=== PATIENT | female | born 1960 | race Caucasian/White ===

== ENCOUNTER 2016-06-11 12:29 | Emergency (ER) | payer BC ==
[2016-06-11 13:25] VITALS: RESP 18
--- NOTE | 2016-06-11 13:46 | ED ---
General Adult HPI - General Chief complaint: Upper Respiratory Infection Stated complaint: Sinus Infection Time Seen by Provider: 06/11/16 13:40 Source: patient, RN notes reviewed Mode of arrival: ambulatory Limitations: no limitations - History of Present Illness Initial comments: Patient 55-year-old female who presents emergency room today with a chief complaint of cough congestion and body aches over the last 4 days. Does admit that she started amoxicillin that she had leftover 4 days ago when the symptoms started. States she saw her family doctor the following day and was started on Levaquin. She states that symptoms do not seem to be improving she feels more congested and she has had a cough with positive sputum production. States been yellow in color. She feels no improvement so she came here to the emergency room today. Does admit to body aches and chills. Admits to feeling feverish. Denies any recorded images at home. Patient denies any shortness of breath, chest pain, back pain, abdominal pain, nausea or vomiting, numbness or tingling , dysuria or hematuria, constipation or diarrhea, headaches or visual changes, or any other complaints. - Related Data Home Medications Medication Instructions Recorded Confirmed Albuterol Inhaler [Ventolin Hfa 1 - 2 puff INHALATION RT-QID PRN 06/11/16 Inhaler] Ibuprofen [Motrin] 800 mg PO Q8HR PRN 06/11/16 06/11/16 Levofloxacin [Levaquin] 500 mg PO DAILY 06/11/16 06/11/16 Mesalamine [Lialda] 2.4 gm PO DAILY 06/11/16 06/11/16 predniSONE [Deltasone] 20 mg PO BID 06/11/16 06/11/16 Allergies Allergy/AdvReac Type Severity Reaction Status Date / Time No Known Allergies Allergy Verified 06/11/16 14:27 Review of Systems ROS Statement: Those systems with pertinent positive or pertinent negative responses have been documented in the HPI. ROS Other: All systems not noted in ROS Statement are negative. Past Medical History Past Medical History: No Reported History Additional Past Medical History / Comment(s): colitis, kidney stones History of Any Multi-Drug Resistant Organisms: None Reported Past Surgical History: No Surgical Hx Reported Past Psychological History: No Psychological Hx Reported Smoking Status: Never smoker Past Alcohol Use History: Occasional Past Drug Use History: None Reported General Exam - General Exam Comments Initial Comments: General: The patient is awake and alert, in no distress, and does not appear acutely ill. Eye: Pupils are equal, round and reactive to light, extra-ocular movements are intact. No nystagmus. There is normal conjunctiva bilaterally. No signs of icterus. Ears, nose, mouth and throat: There are moist mucous membranes and no oral lesions. Neck: The neck is supple, there is no tenderness or JVD. Cardiovascular: There is a regular rate and rhythm. No murmur, rub or gallop is appreciated. Respiratory: Lungs are clear to auscultation, respirations are non-labored, breath sounds are equal. No wheezes, stridor, rales, or rhonchi. Musculoskeletal: Normal ROM, no tenderness. Strength 5/5. Sensation intact. Pulses equal bilaterally 2+. Neurological: A&O x 3. CN II-XII intact, There are no obvious motor or sensory deficits. Coordination appears grossly intact. Speech is normal. Skin: Skin is warm and dry and no rashes or lesions are noted. Psychiatric: Cooperative, appropriate mood & affect, normal judgment. Limitations: no limitations Course Vital Signs 06/11/16 13:21 Temperature 98.6 F Pulse Rate 67 Respiratory 18 Rate Blood Pressure 164/90 O2 Sat by Pulse 97 Oximetry Medical Decision Making - Medical Decision Making Patient reexamined at this time shows no signs of distress. Patient's labs been reviewed. Influenza A positive. Chest x-ray negative. Patient is currently on day 4 of her illness. Advised outside of range for treatment Tamiflu. It was advised that it is a viral illness can use [id number] medications for her symptoms. Advised to continue Tylenol Motrin for pain and fever. Advised return for any other concerns. - Lab Data Lab Results 06/11/16 Range/Units 13:47 Influenza Type A RNA Detected H (Not Detectd) Influenza Type B (PCR) Not Detected (Not Detectd) Disposition Clinical Impression: Influenza A Disposition: HOME SELF-CARE Condition: Good Instructions: Influenza (ED) Additional Instructions: Please use medication as discussed. Please follow-up with family doctor in the next 2 days of symptoms have not improved. Please return to emergency room if the symptoms increase or worsen or for any other concerns. Time of Disposition: 15:12
--- NOTE | 2016-06-11 14:17 | XR ---
EXAMINATION TYPE: XR chest 2V DATE OF EXAM: 06/11/2016 2:10 PM COMPARISON: NONE HISTORY: Cough and congestion TECHNIQUE: Frontal and lateral views of the chest are obtained. FINDINGS: There is no focal air space opacity, pleural effusion, or pneumothorax seen. The cardiac silhouette size is within normal limits. There is a spinal curvature. The osseous structures are int act. IMPRESSION: No acute cardiopulmonary process.
[2016-06-11 15:35] VITALS: BP 148/94; PULSE 54; TEMP 97.1
== END 2016-06-11 15:35 | disposition home or self-care (01) ==
LOC: EC 12:29
DX: J10.1 Influenza due to other identified influenza virus with other respiratory manifestations (principal); Z79.899 Other long term (current) drug therapy; Z87.19 Personal history of other diseases of the digestive system
CPT/HCPCS: 71020; 87502; 99283

== ENCOUNTER → 2016-06-30 | Outpatient (CLI) | payer BC ==
--- NOTE | 2016-07-01 10:23 | MM ---
Reason for exam: screening (asymptomatic). Last mammogram was performed 2 years and 6 months ago. History: Patient is postmenopausal. Physical Findings: A clinical breast exam by your physician is recommended on an annual basis and results should be correlated with mammographic findings. MG Screening Mammo w CAD Bilateral CC and MLO view(s) were taken. Prior study comparison: January 05, 2014, bilateral MG screening mammo w CAD. The breast tissue is heterogeneously dense. This may lower the sensitivity of mammography. There is no discrete abnormality. ASSESSMENT: Negative, BI-RAD 1 RECOMMENDATION: Routine screening mammogram of both breasts in 1 year.
== END | disposition home or self-care (01) ==
LOC: RADMAMWWP 11:25
PROVIDERS: ATTEND Internal Medicine
DX: Z12.31 Encounter for screening mammogram for malignant neoplasm of breast (principal)

== ENCOUNTER → 2017-07-20 | Outpatient (CLI) | payer BC ==
--- NOTE | 2017-07-21 13:30 | MM ---
Reason for exam: screening (asymptomatic). Last mammogram was performed 1 year and 1 month ago. History: Patient is postmenopausal. Physical Findings: A clinical breast exam by your physician is recommended on an annual basis and results should be correlated with mammographic findings. MG Screening Mammo w CAD Bilateral CC and MLO view(s) were taken. Prior study comparison: June 30, 2016, bilateral MG screening mammo w CAD. January 05, 2014, bilateral MG screening mammo w CAD. The breast tissue is heterogeneously dense. This may lower the sensitivity of mammography. There is no discrete abnormality. ASSESSMENT: Negative, BI-RAD 1 RECOMMENDATION: Routine screening mammogram of both breasts in 1 year.
== END | disposition home or self-care (01) ==
LOC: RADMAMWWP 10:33
PROVIDERS: ATTEND Internal Medicine
DX: Z12.31 Encounter for screening mammogram for malignant neoplasm of breast (principal)
CPT/HCPCS: 77067

== ENCOUNTER 2018-10-14 18:39 | Emergency (ER) | payer BC ==
[2018-10-14] MEDS ORDERED: KETOROLAC 30 MG/ML 1 ML VIAL IVP STA (19:47)
[2018-10-14] MEDS ORDERED: ONDANSETRON 4 MG/2 ML VIAL IVP STA (19:47)
[2018-10-14 20:09] LABS: Amorphous Sediment,Urine Rare /hpf; Appearance,Urine Clear (Clear); Bilirubin,Urine Negative (Negative); Blood,Urine Negative (Negative); Color,Urine Light Yellow; Glucose,Urine (UA) Negative (Negative); Ketones,Urine Negative (Negative); Leukocyte Esterase,Urine Trace (Negative); Mucus,Urine Rare /hpf; Nitrite,Urine Negative (Negative); Protein,Urine Negative (Negative); RBC,Urine 1 /hpf (0-5); Squamous Epithelial Cell,Urine 1 /hpf (0-4); Urobilinogen,Urine <2.0 mg/dL (<2.0)
[2018-10-14 20:16] LABS: Basophils # (A) 0.1 k/uL (0-0.2); Basophils % (A) 1 %; Eosinophils # (A) 0.4 k/uL (0-0.7); Eosinophils % (A) 6 %; HCT 41.2 % (34.0-46.0); HGB 13.7 gm/dL (11.4-16.0); Lymphocytes % (A) 31 %; MCH 30.2 pg (25.0-35.0); MCHC 33.1 g/dL (31.0-37.0); Mean Platelet Volume 7.3; Monocytes # (A) 0.5 k/uL (0-1.0); Monocytes % (A) 7 %; Neutrophils # (A) 3.4 k/uL (1.3-7.7); Neutrophils % (A) 52 %; Platelet Count 359 k/uL (150-450); RBC 4.53 m/uL (3.80-5.40); RDW 14.1 % (11.5-15.5); WBC 6.5 k/uL (3.8-10.6)
[2018-10-14 20:21] LABS: ALT 16 U/L (9-52); AST 20 U/L (14-36); African American GFR (CKD) >90 (>60 ml/min/1.73 sqM); Albumin 4.6 g/dL (3.5-5.0); Alkaline Phosphatase 74 U/L (38-126); Anion Gap 11 mmol/L; Blood Urea Nitrogen 13 mg/dL (7-17); Calcium 9.5 mg/dL (8.4-10.2); Carbon Dioxide 24 mmol/L (22-30); Chloride 108 mmol/L (98-107); Glucose 96 mg/dL (74-99); Potassium 3.8 mmol/L (3.5-5.1); Sodium 143 mmol/L (137-145); Total Bilirubin 0.2 mg/dL (0.2-1.3); Total Protein 7.4 g/dL (6.3-8.2)
[2018-10-14 20:27] LABS: Prothrombin Time 10.3 sec (9.0-12.0)
--- NOTE | 2018-10-14 21:26 | CT ---
EXAMINATION TYPE: CT abdomen pelvis w con DATE OF EXAM: 10/14/2018 HISTORY: right sided abdominal pain. hx of stones and colitis. CT DLP: 605.2mGycm Automated Exposure Control for Dose Reduction was Utilized. CONTRAST: CT scan of the abdomen and pelvis is performed with IV Contrast, patient injected with 100 mL of Isov ue 300. COMPARISON: 06/07/2010 FINDINGS: LUNG BASES: Minimal bibasilar subsegmental dependent atelectasis is seen. LIVER/GB: There are numerous scattered subcentimeter hypoattenuated hepatic lesions as seen on the ex am of 2010. Although these are too numerous to count grossly there are similar size and number theref ore these likely represent tiny hepatic cysts. No intrapelvic biliary ductal dilatation. Gallbladder is partially contracted with no radiopaque calculi. PANCREAS: No significant abnormality is seen. SPLEEN: No significant abnormality is seen. ADRENALS: No significant abnormality is seen. KIDNEYS: There is a 7 mm right upper pole renal calculus without hydronephrosis as this is nonobstruc ting. 2 mm right upper pole renal calculus is also seen on the right that is nonobstructing. No left renal calculi are seen. Too small to accurately characterize left upper pole hypoattenuated renal les ion is seen in addition to a lower pole indeterminate 1.0 cm renal lesion that does not meet strict c riteria for renal cyst. Renal ultrasound is recommended for further evaluation. BOWEL: There is very subtle pericolonic fat stranding and questionable periappendiceal fat stranding in the right lower quadrant such as on series 201 image 47 with prominent but nonenlarged right lower quadrant lymph nodes. No dilated large or small bowel is seen. There are multiple sigmoid diverticul a without focal pericolonic fat stranding in the sigmoid colon. UTERUS/ADNEXA: Prominent pelvic vasculature. LYMPH NODES: No greater than 1cm abdominal or pelvic lymph nodes are appreciated. OSSEOUS STRUCTURES: Mild multilevel degenerative changes of the spine.. IMPRESSION: 1. Mild nonspecific minimal right lower quadrant fat stranding near the appendix and cecum with promi nent but nonenlarged lymph nodes. However the appendix is nonenlarged measuring only 4 mm. Findings c ould relate to mesenteric adenitis, colitis, or early appendicitis. Surgical consultation could be re quested. 2. Nonobstructing right renal calculi without evidence of hydronephrosis of either kidney. 3. Prominent pelvic vasculature, right greater than left, may relate to pelvic congestion syndrome in the appropriate clinical setting. 4. Indeterminate left renal lesion of the lower pole could represent a cyst with signal enhancement o r complicated cyst with proteinaceous debris/hemorrhage. Renal ultrasound is recommended on a nonemer gent basis. 5. Numerous subcentimeter hypoattenuated hepatic lesions overall similar in size and number from the prior 2010 therefore likely numerous tiny hepatic cysts.
--- NOTE | 2018-10-14 21:34 | CT ---
EXAMINATION TYPE: CT lumbar spine w con DATE OF EXAM: 10/14/2018 COMPARISON: CT abdomen pelvis of the same date HISTORY: back pain. no injury. CT DLP: 605.2 mGycm Automated exposure control for dose reduction was used. CONTRAST: CT scan of the lumbar is performed with IV Contrast, patient injected with 100 mL of Isovue 300. TECHNIQUE: Enhanced CT of the lumbar spine was performed. Bone and soft tissue window settings are s ubmitted as well as coronal and sagittal reconstructions. FINDINGS: Evaluation of the spinal canal is limited on CT as is evaluation of the neural foramen. Fin dings would be better evaluated with MRI. No acute fracture or malalignment is seen of the lumbar spine. Mild multilevel degenerative disc dise ase is noted. Visualized portions of the abdomen and pelvis are discussed on the abdomen and pelvis d ictation the same date. Vertebral body heights are maintained of the lumbar spine as is alignment. L1-L2: Normal disc space height. No disc herniation protrusion or central stenosis. No facet joint arthropathy. No evidence for foraminal encroachment. L2-L3: Based disc bulge resulting in mild bilateral neural foraminal narrowing without spinal canal s tenosis. L3-L4: Broad-based disc bulge and facet arthropathy resulting in mild bilateral neural foraminal narr owing without spinal canal stenosis. L4-L5: Broad-based disc bulge and facet arthropathy resulting in mild bilateral neural foraminal narr owing. Mild spinal canal stenosis is questioned. L5-S1: Broad-based disc bulge without spinal canal stenosis. Minimal bilateral neural foraminal narro wing. IMPRESSION: 1. No acute fracture or malalignment of the lumbar spine. 2. Mild multilevel degenerative disc disease. Degree of neural foraminal narrowing and spinal canal s tenosis would be better evaluated with MRI however there appears to be mild spinal canal stenosis at L4-L5.
--- NOTE | 2018-10-14 21:53 | US ---
EXAMINATION TYPE: US gallbladder DATE OF EXAM: 10/14/2018 COMPARISON: NONE CLINICAL HISTORY: Pain. EXAM MEASUREMENTS: Liver Length: 12.4 cm Gallbladder Wall: 0.4 cm CBD: 0.4 cm Right Kidney: 11.3 x 3.2 x cm Pancreas: wnl, prominent duct Liver: wnl Gallbladder: wall slightly thickened Evidence for sonographic Mcghee's sign: No CBD: wnl Right Kidney: 1.1 x 0.7 x 0.9cm, nonobstructing calculus IMPRESSION: 1. Gallbladder wall thickening is seen without other evidence of acute cholecystitis. HIDA scan is re commended with CCK to evaluate for chronic cholecystitis or biliary dyskinesia. 2. Nonobstructing right renal calculus.
--- NOTE | 2018-10-14 22:29 | ED ---
Abdominal Pain HPI - General Chief Complaint: Abdominal Pain Stated Complaint: right side abdominal pain Time Seen by Provider: 10/14/18 18:55 Source: patient Mode of arrival: ambulatory Limitations: no limitations - History of Present Illness Initial Comments: Patient is a 58 year old female who presents to the emergency room with reported right-sided flank pain and abdominal pain. The patient reports that her symptoms have been going on since July of this year. She has been following up with her primary care physician Dr. Coon in office for her symptoms. She states that she is going for a gallbladder ultrasound on Wednesday. Her pain became more severe today and therefore she is coming to the emergency department for evaluation. Her pain is located in the right upper quadrant. It is tender to touch. The pain does radiate around to her right flank and into her right groin. The pain is worse with stretching and is better with rest. She has not taken any medications at home for her symptoms. She denies any nausea or vomiting. No chest pain or shortness of breath. She denies any back pain. No trauma. Denies any changes in her urination to include dysuria, hematuria or difficulty voiding. Denies any changes in her bowel movements including diarrhea, constipation, melanotic stools or hematochezia. She continues to have an appetite. No report of fevers or chills at home. No abnormal vaginal bleeding or discharge. There are no other alleviating, precipitating or modifying factors - Related Data Home Medications Medication Instructions Recorded Confirmed Mesalamine [Lialda] 2.4 gm PO DAILY 06/11/16 10/14/18 Allergies Allergy/AdvReac Type Severity Reaction Status Date / Time No Known Allergies Allergy Verified 10/14/18 19:23 Review of Systems ROS Statement: Those systems with pertinent positive or pertinent negative responses have been documented in the HPI. ROS Other: All systems not noted in ROS Statement are negative. Past Medical History Past Medical History: No Reported History Additional Past Medical History / Comment(s): colitis, kidney stones History of Any Multi-Drug Resistant Organisms: None Reported Past Surgical History: No Surgical Hx Reported Additional Past Surgical History / Comment(s): colonoscopy,lithotripsy x3, eye Past Anesthesia/Blood Transfusion Reactions: Previous Problems w/ Anesthesia, Postoperative Nausea & Vomiting (PONV) Additional Past Anesthesia/Blood Transfusion Reaction / Comment(s): "sees things moving on the royal with anesthesia" Past Psychological History: No Psychological Hx Reported Smoking Status: Never smoker Past Alcohol Use History: None Reported, Occasional Past Drug Use History: None Reported - Past Family History Mother Family Medical History: No Reported History Father Family Medical History: Cancer Additional Family Medical History / Comment(s): prostate General Exam Limitations: no limitations General appearance: alert, in no apparent distress Head exam: Present: atraumatic, normocephalic, normal inspection Eye exam: Present: normal appearance, PERRL, EOMI. Absent: scleral icterus, co njunctival injection, periorbital swelling ENT exam: Present: normal exam, mucous membranes moist Neck exam: Present: normal inspection. Absent: tenderness, meningismus, lymphadenopathy Respiratory exam: Present: normal lung sounds bilaterally. Absent: respiratory distress, wheezes, rales, rhonchi, stridor Cardiovascular Exam: Present: regular rate, normal rhythm, normal heart sounds. Absent: systolic murmur, diastolic murmur, rubs, gallop, clicks GI/Abdominal exam: Present: soft, tenderness (tenderness RUQ/RLQ. No peritoneal signs. Negative psoas, negative obturator sign), normal bowel sounds. Absent: distended, guarding, rebound, rigid Extremities exam: Present: normal inspection, full ROM, normal capillary refill. Absent: tenderness, pedal edema, joint swelling, calf tenderness Back exam: Present: normal inspection Neurological exam: Present: alert, oriented X3, CN II-XII intact Psychiatric exam: Present: normal affect, normal mood Skin exam: Present: warm, dry, intact, normal color. Absent: rash Course Vital Signs 10/14/18 10/14/18 18:53 22:42 Temperature 98 F 97.6 F Pulse Rate 56 L 59 L Respiratory 18 16 Rate Blood Pressure 187/116 149/100 O2 Sat by Pulse 97 98 Oximetry Medical Decision Making - Medical Decision Making Upon arrival the patient is placed into room 27. She is hooked continuous pulse ox and cardiac monitoring. A thorough history and physical exam was performed. A 12-lead EKG was also performed which demonstrated normal sinus rhythm. Peripheral IV was established. I did recommend laboratory studies, urinalysis as well as a ultrasound of her gallbladder and a CT of her abdomen and pelvis. The patient was provided with 15 mg of Toradol for her pain and 4 mg of Zofran for any nausea. The patient did agree to the treatment plan. Upon return of the results I did discuss them with the patient. I did inform her of the haziness in her right lower quadrant which may represent mesenteric adenitis, colitis or acute appendicitis. I also informed her of her gallbladder wall thickening with concern for chronic cholecystitis. The patient understood the results. I did call discuss them with Dr. Graham. Dr. Graham is not concerned for appendicitis at this time. He stated that she may be discharged home and should follow up in his office on Wednesday. I did inform the patient of this and she was agreeable to his plan. I also informed her that she may need a HIDA scan. I told the patient to minimize the amount of pain medication that she is taking at home because I do not want her to mask any symptoms. If she has any new or worsening pain that she needs to come back to the emergency room immediately. Patient understood this. She was given written and verbal discharge instructions and she was discharged home in stable condition - Differential Diagnosis mesenteric adenitis, colitis, appendicitis, cholecystitis - Lab Data Result diagrams: 10/14/18 20:06 10/14/18 20:06 Lab Results 10/14/18 10/14/18 10/14/18 Range/Units 19:38 19:38 20:06 WBC 6.5 (3.8-10.6) k/uL RBC 4.53 (3.80-5.40) m/uL Hgb 13.7 (11.4-16.0) gm/dL Hct 41.2 (34.0-46.0) % MCV 91.0 (80.0-100.0) fL MCH 30.2 (25.0-35.0) pg MCHC 33.1 (31.0-37.0) g/dL RDW 14.1 (11.5-15.5) % Plt Count 359 (150-450) k/uL Neutrophils % 52 % Lymphocytes % 31 % Monocytes % 7 % Eosinophils % 6 % Basophils % 1 % Neutrophils # 3.4 (1.3-7.7) k/uL Lymphocytes # 2.0 (1.0-4.8) k/uL Monocytes # 0.5 (0-1.0) k/uL Eosinophils # 0.4 (0-0.7) k/uL Basophils # 0.1 (0-0.2) k/uL PT (9.0-12.0) sec INR (<1.2) Sodium (137-145) mmol/L Potassium (3.5-5.1) mmol/L Chloride (98-107) mmol/L Carbon Dioxide (22-30) mmol/L Anion Gap mmol/L BUN (7-17) mg/dL Creatinine (0.52-1.04) mg/dL Est GFR (CKD-EPI)AfAm (>60 ml/min/1.73 sqM) Est GFR (CKD-EPI)NonAf (>60 ml/min/1.73 sqM) Glucose (74-99) mg/dL Calcium (8.4-10.2) mg/dL Total Bilirubin (0.2-1.3) mg/dL AST (14-36) U/L ALT (9-52) U/L Alkaline Phosphatase (38-126) U/L Total Protein (6.3-8.2) g/dL Albumin (3.5-5.0) g/dL Lipase (23-300) U/L Urine Color Light Yellow Urine Appearance Clear (Clear) Urine pH 7.0 (5.0-8.0) Ur Specific [place] 1.000 L (1.001-1.035) Urine Protein Negative (Negative) Urine Glucose (UA) Negative (Negative) Urine Ketones Negative (Negative) Urine Blood Negative (Negative) Urine Nitrite Negative (Negative) Urine Bilirubin Negative (Negative) Urine Urobilinogen <2.0 (<2.0) mg/dL Ur Leukocyte Esterase Trace H (Negative) Urine RBC 1 (0-5) /hpf Urine WBC 1 (0-5) /hpf Ur Squamous Epith Cells 1 (0-4) /hpf Amorphous Sediment Rare H (None) /hpf Urine Mucus Rare H (None) /hpf Urine HCG, Qual Not Detected (Not Detectd) 10/14/18 10/14/18 Range/Units 20:06 20:06 WBC (3.8-10.6) k/uL RBC (3.80-5.40) m/uL Hgb (11.4-16.0) gm/dL Hct (34.0-46.0) % MCV (80.0-100.0) fL MCH (25.0-35.0) pg MCHC (31.0-37.0) g/dL RDW (11.5-15.5) % Plt Count (150-450) k/uL Neutrophils % % Lymphocytes % % Monocytes % % Eosinophils % % Basophils % % Neutrophils # (1.3-7.7) k/uL Lymphocytes # (1.0-4.8) k/uL Monocytes # (0-1.0) k/uL Eosinophils # (0-0.7) k/uL Basophils # (0-0.2) k/uL PT 10.3 (9.0-12.0) sec INR 1.0 (<1.2) Sodium 143 (137-145) mmol/L Potassium 3.8 (3.5-5.1) mmol/L Chloride 108 H (98-107) mmol/L Carbon Dioxide 24 (22-30) mmol/L Anion Gap 11 mmol/L BUN 13 (7-17) mg/dL Creatinine 0.63 (0.52-1.04) mg/dL Est GFR (CKD-EPI)AfAm >90 (>60 ml/min/1.73 sqM) Est GFR (CKD-EPI)NonAf >90 (>60 ml/min/1.73 sqM) Glucose 96 (74-99) mg/dL Calcium 9.5 (8.4-10.2) mg/dL Total Bilirubin 0.2 (0.2-1.3) mg/dL AST 20 (14-36) U/L ALT 16 (9-52) U/L Alkaline Phosphatase 74 (38-126) U/L Total Protein 7.4 (6.3-8.2) g/dL Albumin 4.6 (3.5-5.0) g/dL Lipase 134 (23-300) U/L Urine Color Urine Appearance (Clear) Urine pH (5.0-8.0) Ur Specific [place] (1.001-1.035) Urine Protein (Negative) Urine Glucose (UA) (Negative) Urine Ketones (Negative) Urine Blood (Negative) Urine Nitrite (Negative) Urine Bilirubin (Negative) Urine Urobilinogen (<2.0) mg/dL Ur Leukocyte Esterase (Negative) Urine RBC (0-5) /hpf Urine WBC (0-5) /hpf Ur Squamous Epith Cells (0-4) /hpf Amorphous Sediment (None) /hpf Urine Mucus (None) /hpf Urine HCG, Qual (Not Detectd) - EKG Data EKG Comments: EKG demonstrates a normal sinus rhythm with a ventricular rate of 57. LA interval 122. QRS 96. QTC of 461. There are occasional PACs. No acute ST segment elevations or depressions concerning for ischemic changes Disposition Clinical Impression: Abdominal pain Disposition: HOME SELF-CARE Condition: Stable Instructions (If sedation given, give patient instructions): Abdominal Pain (E D) Additional Instructions: Please follow-up with Dr. Graham on Wednesday. Call on Wednesday to make an appointment. You will also need a HIDA scan of your gallbladder. Take Tylenol and Motrin for pain however if your pain worsens, return to the emergency department Is patient prescribed a controlled substance at d/c from ED?: No Referrals: Caro Coon MD [Primary Care Provider] - 1-2 days Speedy Graham MD [STAFF PHYSICIAN] - 1-2 days Time of Disposition: 22:29
[2018-10-14 22:44] VITALS: BP 149/100; PULSE 59; RESP 16; TEMP 97.6
== END 2018-10-14 22:45 | disposition home or self-care (01) ==
LOC: EC 18:39
DX: R10.11 Right upper quadrant pain (principal); N20.0 Calculus of kidney; N94.89 Other specified conditions associated with female genital organs and menstrual cycle; K76.9 Liver disease, unspecified; Z79.899 Other long term (current) drug therapy
CPT/HCPCS: 36415; 93005; 80053; 83690; 85025; 85610; 81001; 81025; 76705; 72132; 74177; 99284; 96374; 96375; J2405; J1885; Q9967

== ENCOUNTER 2018-11-09 09:53 | Day surgery (SDC) | payer BC ==
[2018-11-07 10:54] VITALS: BMI 24.1
[~2018-11-09 09:53] MED LIST: LACTATED RINGERS 1,000 ML IV SCH; LIDOCAINE 1% 20 ML VIAL (10MG/ML) FOR IV START INTRADERMA PRN
[2018-11-09 10:36] VITALS: TEMP 97.8
[2018-11-09] MEDS ORDERED: LACTATED RINGERS 1,000 ML IV ONE (10:36)
[2018-11-09] MEDS ORDERED: LIDOCAINE 1% 20 ML VIAL (10MG/ML) FOR IV START INTRADERMA ONE (10:38)
[2018-11-09] MEDS ORDERED: PROPOFOL 10 MG/ML 20 ML VIAL IV ONE (11:47)
[2018-11-09] MEDS ORDERED: LIDOCAINE 1% INJ 10MG/ML (20 ML MDV) ONE (11:47)
--- NOTE | 2018-11-09 12:10 | P.PCN ---
Date of Procedure: 11/09/18 Procedure(s) Performed: BRIEF HISTORY: Patient is a 58-year-old pleasant white female scheduled for an elective colonoscopy as a part of evaluation of severe right lower abdominal pain for the last 3 months duration. His been having intermittent diarrhea. Has been to the emergency room 3 times in the last [address] of the abdomen and pelvis done at [facility] as well as at [facility] from the patient was normal. She was also admitted to [facility] following her third ER visit. She was recommended to have an outpatient colonoscopy. 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 Last colonoscopy 2 years ago was un remarkable. PROCEDURE PERFORMED: Colonoscopy with random biopsies. PREOPERATIVE DIAGNOSIS: Severe right lower quadrant abdominal pain of 3 months duration. IV sedation per Anesthesia. PROCEDURE: After informed consent was obtained, the patient, was brought into the endoscopy unit. IV sedation was administered by Anesthesia under continuous monitoring. Digital rectal examination was normal. Initially the Olympus CF-160 flexible video colonoscope was then inserted in the rectum, gradually advanced into the cecum without any difficulty. Careful examination was performed as the scope was gradually being withdrawn. Ileocecal valve and the appendiceal orifice were visualized and appeared normal. Prep was excellent. Terminal ileum was intubated at least 37 mm visualized and appeared normal. Biopsies were done from this area. Mucosa of the cecum, ascending colon, transverse colon, descending colon, sigmoid colon, and rectum appeared normal. Scattered sigmoid diverticulosis seen. Retroflexion was performed in the rectum and no lesions were seen. Random biopsies were done throughout the entire colon. The patient tolerated the procedure well. IMPRESSION: Normal-appearing colon from rectum to cecum with no evidence of colitis or colorectal neoplasia. Scattered sigmoid Diverticulosis RECOMMENDATIONS: Findings of this examination were discussed with the patient as well her family. She was advised to follow with the biopsy results and she'll be seen in office in one to 2 weeks..
[2018-11-09 12:33] VITALS: BP 139/89; PULSE 56; RESP 18
== END 2018-11-09 13:04 | disposition home or self-care (01) ==
LOC: ORWHC2ENDO 09:53
PROVIDERS: ATTEND Internal Medicine Gastroenterology
DX: K57.30 Diverticulosis of large intestine without perforation or abscess without bleeding (principal); Z87.442 Personal history of urinary calculi; F39 Unspecified mood [affective] disorder; Z79.899 Other long term (current) drug therapy
CPT/HCPCS: 45380; J2001; J2704; 88305

== ENCOUNTER → 2019-03-06 | Outpatient (CLI) | payer BC ==
--- NOTE | 2019-03-10 12:22 | MM ---
Reason for exam: screening (asymptomatic). Last mammogram was performed 1 year and 7 months ago. History: Patient is postmenopausal. Physical Findings: A clinical breast exam by your physician is recommended on an annual basis and results should be correlated with mammographic findings. MG Screening Mammo w CAD Bilateral CC and MLO view(s) were taken. Prior study comparison: July 20, 2017, bilateral MG screening mammo w CAD. June 30, 2016, bilateral MG screening mammo w CAD. The breast tissue is heterogeneously dense. This may lower the sensitivity of mammography. There is no discrete abnormality. ASSESSMENT: Negative, BI-RAD 1 RECOMMENDATION: Routine screening mammogram of both breasts in 1 year.
== END | disposition home or self-care (01) ==
LOC: RADMAMWWP 11:02
PROVIDERS: ATTEND Internal Medicine
DX: Z12.31 Encounter for screening mammogram for malignant neoplasm of breast (principal)
CPT/HCPCS: 77067

== ENCOUNTER → 2020-02-16 | Outpatient (CLI) | payer BC ==
--- NOTE | 2020-02-16 12:43 | XR ---
EXAMINATION TYPE: XR KUB DATE OF EXAM: 02/16/2020 12:38 PM CLINICAL HISTORY: Right-sided kidney stone TECHNIQUE: Single supine KUB image of the abdomen is obtained. COMPARISON: CT abdomen and pelvis October 14, 2018 FINDINGS: Prior visualized roughly 9 mm calculus right kidney upper pole level not clearly seen on th is study. No definite left-sided nephrolithiasis. Overall nonobstructive bowel gas pattern. Few scattered tiny pelvic phleboliths. Osseous structures a re intact. IMPRESSION: As above.
== END | disposition home or self-care (01) ==
LOC: RADXRMAIN 12:09
PROVIDERS: ATTEND Urology
DX: N20.2 Calculus of kidney with calculus of ureter (principal)
CPT/HCPCS: 74018

== ENCOUNTER → 2020-02-21 | Outpatient (CLI) | payer BC ==
--- NOTE | 2020-02-21 10:21 | CT ---
EXAMINATION TYPE: CT abdomen pelvis wo con DATE OF EXAM: 02/21/2020 COMPARISON: 10/14/2018 INDICATION: Right flank pain, history of renal stones DLP: 305.6 mGycm, Automated exposure control for dose reduction was used. CONTRAST: 0 mL of Isovue 300. Study performed without Oral Contrast TECHNIQUE: Axial images were obtained from above the diaphragm to the pubic rami in the axial plane a t 5 mm thick sections. Reconstructed images are reviewed on the computer in the coronal plane. FINDINGS: Limited CT sections are obtained the lung bases. The lung bases are clear. CT ABDOMEN: Liver: Normal Spleen: Normal Pancreas: Normal Adrenal glands: The adrenal glands are normal. Gallbladder: Normal Kidneys: No masses are evident. No hydronephrosis is present. No cysts are present. No renal stone s are evident. No hydroureter is evident. No ureteral stones are evident. Aorta: Normal Inferior vena cava: Normal. CT PELVIS: Loops of bowel within the abdomen and pelvis are normal. This study is without oral contrast limi ting bowel evaluation. Appendix: Normal as visualized. Urinary bladder: Normal. Genitourinary structures: Uterus is unremarkable. Adnexal regions are clear. Osseous structures: No suspicious lytic or sclerotic lesions. IMPRESSIONS: 1. No suspicious renal or ureteral stones.
== END | disposition home or self-care (01) ==
LOC: RADCTMAIN 07:39
PROVIDERS: ATTEND Urology
DX: N20.9 Urinary calculus, unspecified (principal); R10.9 Unspecified abdominal pain
CPT/HCPCS: 74176

== ENCOUNTER → 2022-01-27 | Outpatient (CLI) | payer BC ==
--- NOTE | 2022-01-27 14:32 | XR ---
EXAMINATION TYPE: XR KUB DATE OF EXAM: 01/27/2022 COMPARISON: KUB 02/16/2020, CT abdomen pelvis 02/21/2020 HISTORY: N20.0 Calculus kidney TECHNIQUE: Supine KUB images of the abdomen is obtained FINDINGS: Small bowel demonstrates no evidence for dilatation or air fluid levels. Gas and fecal material is seen in non-distended colon. Limited evaluation for renal calculi due to overlying bowel. No discrete renal calcifications identif ied. The lung bases are clear. The osseous structures are intact. IMPRESSION: Limited evaluation for renal calculi due to overlying bowel. No discrete renal calcifications identif ied.
== END | disposition home or self-care (01) ==
LOC: RADXRMAIN 14:08
PROVIDERS: ATTEND Urology
DX: N20.0 Calculus of kidney (principal)
CPT/HCPCS: 74018

== ENCOUNTER → 2022-01-30 | Outpatient (CLI) | payer BC ==
--- NOTE | 2022-01-30 15:02 | CT ---
EXAMINATION TYPE: CT abdomen pelvis wo con DATE OF EXAM: 01/30/2022 COMPARISON: 02/21/2020 HISTORY: Right side kidney stone. CT DLP: 776 mGycm Examination of the solid and hollow viscera is limited given the lack of contrast. FINDINGS: LUNG BASES: No evidence for nodule. No evidence for infiltrate. LIVER/GB: The gallbladder is unremarkable. No space-occupying hepatic lesion. PANCREAS: No pancreatic mass identified. No inflammatory process seen. SPLEEN: No evidence for splenomegaly. No intrasplenic lesions seen. ADRENALS: No adrenal nodules identified. No evidence for thickening. KIDNEYS: No evidence for renal mass. 2 mm nonobstructing calculus upper pole right kidney and upper p ole left kidney. No hydronephrosis. BOWEL: Appendix has a normal appearance. No evidence of bowel obstruction. No inflammatory process. Lymph nodes: No evidence for adenopathy greater than 1 cm. Abdominal aorta: Atheromatous changes seen. No evidence for aneurysm. Genital organs: No significant abnormality. Other: No significant abnormality. IMPRESSION: NONOBSTRUCTING NEPHROLITHIASIS.
== END | disposition home or self-care (01) ==
LOC: RADCTMAIN 14:01
PROVIDERS: ATTEND Urology
DX: N20.0 Calculus of kidney (principal)
CPT/HCPCS: 74176

== ENCOUNTER 2022-03-09 10:14 | Emergency (ER) | payer BC ==
[2022-03-09] MEDS ORDERED: SODIUM CHLORIDE 0.9% 1,000 ML IV STA (12:46)
[2022-03-09] MEDS ORDERED: PANTOPRAZOLE 40 MG/10 ML VIAL IVP STA (12:46)
[2022-03-09] MEDS ORDERED: MORPHINE SULFATE 4 MG/ML SYRINGE IVP STA (12:46)
[2022-03-09] MEDS ORDERED: ONDANSETRON 4 MG/2 ML VIAL IVP STA (12:46)
--- NOTE | 2022-03-09 12:48 | ED ---
General Adult HPI - General Chief complaint: Abdominal Pain Stated complaint: Kidney Stone Time Seen by Provider: 03/09/22 12:30 Source: patient, RN notes reviewed, old records reviewed Mode of arrival: ambulatory Limitations: no limitations - History of Present Illness Initial comments: Patient is a 61-year-old female who presents emergency Department complaining of somewhat chronic abdominal pain with an acute exacerbation. Has a history of colitis as well as right-sided kidney stones. Has a history of this crampy, sharp abdominal pain that she is currently experiencing. She states it started again 4 days ago. It has been having nausea with nonbilious nonbloody emesis as well as nonbloody diarrhea since yesterday. Nurses right-sided abdominal pain that is occasionally in the right upper quadrant occasion the right lower quadrant. Still has both her appendix and gallbladder. Denies any chest pain, shortness of breath. Denies any fevers. Is unsure certain if this is similar to her colitis versus kidney stone pain. She presents for further evaluation at this time. States she has less of an appetite.Denies any hematuria, dysuria. - Related Data Home Medications Medication Instructions Recorded Confirmed Mesalamine [Lialda] 2.4 gm PO DAILY 06/11/16 03/09/22 Acetaminophen Tab [Tylenol Tab] 1,000 mg PO Q6H PRN 03/09/22 03/09/22 lisinopriL [Zestril] 10 mg PO BID 03/09/22 03/09/22 Previous Rx's Medication Instructions Recorded Dicyclomine [Bentyl] 10 mg PO TID PRN 7 Days #21 capsule 03/09/22 Ondansetron Odt [Zofran Odt] 4 mg PO Q8HR PRN 3 Days #9 tab 03/09/22 Allergies Allergy/AdvReac Type Severity Reaction Status Date / Time iodine Allergy Rash/Hives Verified 03/09/22 15:22 Review of Systems ROS Statement: Those systems with pertinent positive or pertinent negative responses have been documented in the HPI. Review of Systems: CONST: Denies fever EYES: Denies blurry vision ENT: Denies nasal congestion C/V: Denies Chest pain RESP: Denies shortness of breath GI: Endorses abdominal pain : Denies dysuria SKIN: Denies rash. MSK: Denies joint pain. NEURO: Denies headache ROS Other: All systems not noted in ROS Statement are negative. Past Medical History Past Medical History: No Reported History Additional Past Medical History / Comment(s): Colitis. Hx kidney stones. SEVERE lower right abdominal pain. "I believe I was impacted." Bloating. "Was told at one hospital that I have an inflammed bowel close to my appendix and another hospital told me I don't." "Current right kidney stone. Urology appointment coming up." History of Any Multi-Drug Resistant Organisms: None Reported Past Surgical History: No Surgical Hx Reported Additional Past Surgical History / Comment(s): Colonoscopy, lithotripsy X3, eye surgery. Past Anesthesia/Blood Transfusion Reactions: Previous Problems w/ Anesthesia, Postoperative Nausea & Vomiting (PONV) Additional Past Anesthesia/Blood Transfusion Reaction / Comment(s): "Saw things moving on the royal with anesthesia with 1st lithotripsy." Past Psychological History: No Psychological Hx Reported Smoking Status: Never smoker Past Alcohol Use History: None Reported, Occasional Past Drug Use History: None Reported - Past Family History Mother Family Medical History: No Reported History Father Family Medical History: Cancer Additional Family Medical History / Comment(s): Prostate cancer. General Exam - General Exam Comments Initial Comments: General: Appears in mild acute distress secondary to abdominal pain.. HEAD: Normal with no signs of head trauma. EYES: PERRLA, EOMI, conjunctiva normal, no discharge. ENT: Hearing grossly intact, normal oropharynx. RESPIRATORY: Clear breath sounds bilaterally. No wheezes, rales, or rhonchi. C/V: Regular rate and rhythm. S1 and S2 auscultated, no edema, peripheral pulses 2+ and intact throughout ABD: Abdomen is soft, nondistended. Mildly tender to palpation in the right upper quadrant, right lower quadrant. No flank tenderness. No CVA tenderness to percussion. No guarding, peritoneal signs, rebound tenderness to palpation. EXT: Normal range of motion, no obvious deformity SKIN: No rashes or lesions observed on exposed skin. NEURO: Alert and oriented 4. Limitations: no limitations Course Vital Signs 03/09/22 03/09/22 03/09/22 10:37 14:34 16:55 Temperature 98.0 F 97.9 F Pulse Rate 70 78 66 Respiratory 18 17 16 Rate Blood Pressure 122/81 146/108 130/81 O2 Sat by Pulse 98 98 96 Oximetry Medical Decision Making - Medical Decision Making Based on the patient's presentation and physical exam, I'm concerned for an acute exacerbation of chronic abdominal discomfort. Differential diagnosis includes renal stone, colitis I cannot rule out other etiology at this time including hepatobiliary. We will obtain abdominal laboratory studies, as well as start with ultrasounds of the renals bladder, as well as gallbladder. Patient was symptomatically treated with IV analgesia, fluids, antiemetics. She was in agreement with this plan. Vital signs within acceptable limits. Screen ing EKG will also be obtained. Patient's EKG shows no signs of acute ischemia. Laboratory studies are remarkable for a mild leukopenia 3.6. Urinalysis shows no evidence of kidney stone. Remainder the labs are unremarkable. Bladder and gallbladder ultrasound as interpreted by radiology reveals no evidence of hydronephrosis or obstructive renal calculi. Gallbladder ultrasound is unremarkable as well. I did update the patient this time. I would like to obtain CT imaging of the abdomen and pelvis at this time. She was in agreement this plan. CT is interpreted by my self revealed right-sided enteritis which does fit with her clinical symptoms. Diarrhea present. I updated the patient with results. We discussed that enteritis typically viral in origin, and she is only at symptoms for 3-4 days. I do believe this will pass with time and she was in agreement with the plan. She'll be discharged home at this time. Strict return precautions were discussed. She was in agreement this plan. I will provide the patient with a prescription for Bentyl, ODT Zofran. I instructed the patient to follow up with their PCP in the next 1-3 days. I explained that the patient should return to the emergency department if they experience any worsening symptoms. Strict return precautions were discussed with the patient. The patient expressed understanding of these instructions. I answered all questions that the patient had. The patient was discharged home in good condition with their prescriptions and follow up information. - Lab Data Result diagrams: 03/09/22 12:49 03/09/22 12:49 Lab Results 03/09/22 03/09/22 03/09/22 Range/Units 12:49 12:49 12:49 WBC 3.6 L (3.8-10.6) k/uL RBC 4.68 (3.80-5.40) m/uL Hgb 14.4 (11.4-16.0) gm/dL Hct 42.5 (34.0-46.0) % MCV 90.8 (80.0-100.0) fL MCH 30.8 (25.0-35.0) pg MCHC 34.0 (31.0-37.0) g/dL RDW 12.2 (11.5-15.5) % Plt Count 250 (150-450) k/uL MPV 7.7 Neutrophils % 65 % Lymphocytes % 20 % Monocytes % 10 % Eosinophils % 1 % Basophils % 1 % Neutrophils # 2.4 (1.3-7.7) k/uL Lymphocytes # 0.7 L (1.0-4.8) k/uL Monocytes # 0.3 (0-1.0) k/uL Eosinophils # 0.0 (0-0.7) k/uL Basophils # 0.0 (0-0.2) k/uL PT 9.6 (9.0-12.0) sec INR 0.9 (<1.2) APTT 24.8 (22.0-30.0) sec Sodium (137-145) mmol/L Potassium (3.5-5.1) mmol/L Chloride (98-107) mmol/L Carbon Dioxide (22-30) mmol/L Anion Gap mmol/L BUN (7-17) mg/dL Creatinine (0.52-1.04) mg/dL Est GFR (CKD-EPI)AfAm (>60 ml/min/1.73 sqM) Est GFR (CKD-EPI)NonAf (>60 ml/min/1.73 sqM) Glucose (74-99) mg/dL Plasma Lactic Acid Erik (0.7-2.0) mmol/L Calcium (8.4-10.2) mg/dL Total Bilirubin (0.2-1.3) mg/dL AST (14-36) U/L ALT (4-34) U/L Alkaline Phosphatase (38-126) U/L Total Protein (6.3-8.2) g/dL Albumin (3.5-5.0) g/dL Amylase (30-110) U/L Lipase (23-300) U/L Urine Color Light Yellow Urine Appearance Clear (Clear) Urine pH 6.5 (5.0-8.0) Ur Specific [place] 1.012 (1.001-1.035) Urine Protein Negative (Negative) Urine Glucose (UA) Negative (Negative) Urine Ketones 1+ H (Negative) Urine Blood Trace H (Negative) Urine Nitrite Negative (Negative) Urine Bilirubin Negative (Negative) Urine Urobilinogen <2.0 (<2.0) mg/dL Ur Leukocyte Esterase Negative (Negative) Urine RBC 2 (0-5) /hpf Urine WBC 1 (0-5) /hpf Ur Squamous Epith Cells <1 (0-4) /hpf Hyaline Casts 1 (0-2) /lpf Urine Mucus Rare H (None) /hpf 03/09/22 03/09/22 Range/Units 12:49 12:49 WBC (3.8-10.6) k/uL RBC (3.80-5.40) m/uL Hgb (11.4-16.0) gm/dL Hct (34.0-46.0) % MCV (80.0-100.0) fL MCH (25.0-35.0) pg MCHC (31.0-37.0) g/dL RDW (11.5-15.5) % Plt Count (150-450) k/uL MPV Neutrophils % % Lymphocytes % % Monocytes % % Eosinophils % % Basophils % % Neutrophils # (1.3-7.7) k/uL Lymphocytes # (1.0-4.8) k/uL Monocytes # (0-1.0) k/uL Eosinophils # (0-0.7) k/uL Basophils # (0-0.2) k/uL PT (9.0-12.0) sec INR (<1.2) APTT (22.0-30.0) sec Sodium 139 (137-145) mmol/L Potassium 3.9 (3.5-5.1) mmol/L Chloride 106 (98-107) mmol/L Carbon Dioxide 24 (22-30) mmol/L Anion Gap 9 mmol/L BUN 11 (7-17) mg/dL Creatinine 0.56 (0.52-1.04) mg/dL Est GFR (CKD-EPI)AfAm >90 (>60 ml/min/1.73 sqM) Est GFR (CKD-EPI)NonAf >90 (>60 ml/min/1.73 sqM) Glucose 95 (74-99) mg/dL Plasma Lactic Acid Erik 0.9 (0.7-2.0) mmol/L Calcium 8.5 (8.4-10.2) mg/dL Total Bilirubin 0.4 (0.2-1.3) mg/dL AST 32 (14-36) U/L ALT 16 (4-34) U/L Alkaline Phosphatase 67 (38-126) U/L Total Protein 7.3 (6.3-8.2) g/dL Albumin 4.5 (3.5-5.0) g/dL Amylase 69 (30-110) U/L Lipase 89 (23-300) U/L Urine Color Urine Appearance (Clear) Urine pH (5.0-8.0) Ur Specific [place] (1.001-1.035) Urine Protein (Negative) Urine Glucose (UA) (Negative) Urine Ketones (Negative) Urine Blood (Negative) Urine Nitrite (Negative) Urine Bilirubin (Negative) Urine Urobilinogen (<2.0) mg/dL Ur Leukocyte Esterase (Negative) Urine RBC (0-5) /hpf Urine WBC (0-5) /hpf Ur Squamous Epith Cells (0-4) /hpf Hyaline Casts (0-2) /lpf Urine Mucus (None) /hpf - EKG Data -: EKG Interpreted by Me EKG Comments: 12-lead Electrocardiogram Interpretation Note EKG was reviewed and interpreted by myself. 12-lead ECG performed at 1348 is interpreted by me as revealing normal sinus rhythm at a rate of 53 beats per minute. [place] is normal. DC interval is 151 ms, QRS durations 105 ms, QTc is 467 ms.. There were no ST or T wave abnormalities to suggest myocardial ischemia or injury. R wave progression across the precordium was satisfactory. By my interpretation this EKG is non-diagnostic for acute ischemia. When compared with EKG from 10/14/2018, no smoking change. Disposition Clinical Impression: Enteritis Disposition: HOME SELF-CARE Condition: Good Prescriptions: Dicyclomine [Bentyl] 10 mg PO TID PRN 7 Days #21 capsule PRN Reason: Pain Ondansetron Odt [Zofran Odt] 4 mg PO Q8HR PRN 3 Days #9 tab PRN Reason: Nausea Is patient prescribed a controlled substance at d/c from ED?: No Referrals: Caro Coon MD [Primary Care Provider] - 1-2 days Time of Disposition: 16:00
[2022-03-09 13:06] LABS: Appearance,Urine Clear (Clear); Bilirubin,Urine Negative (Negative); Blood,Urine Trace (Negative); Color,Urine Light Yellow; Glucose,Urine (UA) Negative (Negative); Hyaline Casts,Urine 1 /lpf (0-2); Ketones,Urine 1+ (Negative); Leukocyte Esterase,Urine Negative (Negative); Mucus,Urine Rare /hpf; Nitrite,Urine Negative (Negative); PH, Urine 6.5 (5.0-8.0); Protein,Urine Negative (Negative); RBC,Urine 2 /hpf (0-5); Specific Gravity,Urine 1.012 (1.001-1.035); Squamous Epithelial Cell,Urine <1 /hpf (0-4); Urobilinogen,Urine <2.0 mg/dL (<2.0); WBC,Urine 1 /hpf (0-5)
[2022-03-09 13:13] LABS: INR 0.9 (<1.2); Partial Thromboplastin Time 24.8 sec (22.0-30.0); Prothrombin Time 9.6 sec (9.0-12.0)
[2022-03-09 13:16] LABS: Basophils % (A) 1 %; Eosinophils % (A) 1 %; HCT 42.5 % (34.0-46.0); HGB 14.4 gm/dL (11.4-16.0); Lymphocytes # (A) 0.7 k/uL (1.0-4.8); Lymphocytes % (A) 20 %; MCH 30.8 pg (25.0-35.0); MCV 90.8 fL (80.0-100.0); Mean Platelet Volume 7.7; Monocytes # (A) 0.3 k/uL (0-1.0); Monocytes % (A) 10 %; Neutrophils # (A) 2.4 k/uL (1.3-7.7); Neutrophils % (A) 65 %; Platelet Count 250 k/uL (150-450); RBC 4.68 m/uL (3.80-5.40); RDW 12.2 % (11.5-15.5); WBC 3.6 k/uL (3.8-10.6)
[2022-03-09 13:21] LABS: ALT 16 U/L (4-34); AST 32 U/L (14-36); African American GFR (CKD) >90 (>60 ml/min/1.73 sqM); Albumin 4.5 g/dL (3.5-5.0); Alkaline Phosphatase 67 U/L (38-126); Amylase 69 U/L (30-110); Anion Gap 9 mmol/L; Blood Urea Nitrogen 11 mg/dL (7-17); Calcium 8.5 mg/dL (8.4-10.2); Carbon Dioxide 24 mmol/L (22-30); Chloride 106 mmol/L (98-107); Glucose 95 mg/dL (74-99); Lipase 89 U/L (23-300); Non-African American GFR(CKD) >90 (>60 ml/min/1.73 sqM); Potassium 3.9 mmol/L (3.5-5.1); Sodium 139 mmol/L (137-145); Total Bilirubin 0.4 mg/dL (0.2-1.3); Total Protein 7.3 g/dL (6.3-8.2)
--- NOTE | 2022-03-09 13:38 | US ---
EXAMINATION TYPE: US abd limited kidneys/bladder DATE OF EXAM: 03/09/2022 COMPARISON: 01/30/2022 CT CLINICAL HISTORY: right flank pain. hx renal stones per patient. TECHNIQUE: Multiple sonographic images of the right upper quadrant, bilateral kidneys, and bladder ar e obtained. FINDINGS: EXAM MEASUREMENTS: Liver Length: 13.7 cm Gallbladder Wall: 0.3 cm CBD: 0.5 cm Right Kidney: 9.9 x 5.0 x 4.6 cm Left Kidney: 9.4 x 4.6 x 4.7 cm Pancreas: Main pancreatic duct- 3.0 mm Liver: Cystic lesion adjacent to GB= 0.6 x 0.9 x 0.[address] Gallbladder: Fundal region wall appears slightly thickened= 3.4 mm suggestive of adenomyomatosis. CBD: wnl Right Kidney: No hydronephrosis or masses seen Left Kidney: No hydronephrosis or masses seen, limited visualization due to bowle gas Bladder: distended Bilateral Jets Seen LINOLEUM LAYER NOTES: Peristalsing bowel visualized. IMPRESSION: 1. No evidence for acute process. 2. Right renal calculus seen on prior CT not definitively visualized. No evidence of obstructive uro unruly.
[2022-03-09] MEDS ORDERED: METOCLOPRAMIDE 5 MG/ML 2 ML VIAL IVP STA (13:52)
[2022-03-09] MEDS ORDERED: FAMOTIDINE 20 MG/2 ML VIAL IV STA (13:58)
[2022-03-09] MEDS ORDERED: diphenhydrAMINE 50 MG/ML 1 ML VIAL IVP STA (13:58)
[2022-03-09] MEDS ORDERED: methylPREDNISolone SOD SUCCI 125 MG/2 ML VIAL IV STA (13:58)
--- NOTE | 2022-03-09 16:02 | CT ---
EXAMINATION TYPE: CT abdomen pelvis w con DATE OF EXAM: 03/09/2022 COMPARISON: 09/29/2021 HISTORY: 61-year-old female Right lower quadrant abdominal pain, nausea, vomiting and diarrhea. TECHNIQUE: Contiguous axial scanning of the abdomen and pelvis following administration of 100 ml Iso samantha 300 IV contrast. Delayed images through the kidneys and coronal/sagittal reconstructions perform ed. CT DLP: 688.5 mGycm Automated exposure control for dose reduction was used. FINDINGS: Heart normal size without pericardial effusion. Lung bases clear without pleural effusion. Numerous scattered tiny hypodensities throughout the liver measuring 6 cm in smaller likely small cys ts. Portal venous system is patent. Bile duct measures up to 6 mm, likely age related change. No abno rmal gallbladder distention. Adrenal glands, right kidney, spleen, and pancreas show no gross adenopathy. There is a 1 cm cortical lesion lower pole left kidney compatible with a benign cyst. Mild diffuse gastric fold thickening may relate to nondistention or gastritis. Numerous scattered borderline sized mesenteric lymph nodes measuring up to 7 mm. Prominent fluid-fill ed small bowel loops throughout the mid and lower abdomen and pelvis with liquid stool along the asce nding colon. Segments of the normal appendix are visualized. Mild diverticulosis. No pericolonic infl ammatory change. Bladder urine distended. Uterus anteverted. Both ovaries are visualized. No abnormal fluid collection in the pelvis or pelvic lymphadenopathy. Bones: Mild/moderate degenerative change of both hips. Facet arthropathy mid to lower lumbar spine. IMPRESSION: 1. NUMEROUS PROMINENT FLUID-FILLED SMALL BOWEL LOOPS THROUGHOUT. LIQUID STOOL IN THE RIGHT SIDE OF TH E COLON SUGGESTING DIARRHEAL STATE. CORRELATE FOR ENTERITIS. 2. NUMEROUS BORDERLINE SIZED MESENTERIC LYMPH NODES MEASURING UP TO 7 MM, LIKELY REACTIVE. 3. DIFFUSE GASTRIC FOLD THICKENING COULD RELATE TO NONDISTENTION OR GASTRITIS.
[2022-03-09 16:57] VITALS: BP 130/81; PULSE 66; RESP 16; TEMP 97.9
== END 2022-03-09 16:57 | disposition home or self-care (01) ==
LOC: EC 10:14
DX: K52.9 Noninfective gastroenteritis and colitis, unspecified (principal); Z91.041 Radiographic dye allergy status
CPT/HCPCS: 36415; 93005; 80053; 82150; 83605; 83690; 85025; 85610; 85730; 81001; 76705; 76770; 74177; 99285; 96374; 96375 ×6; 96361; J2270; J1200; J2765; J2930; J2405; C9113; Q9967

== ENCOUNTER → 2022-05-27 | Outpatient (CLI) | payer BC ==
--- NOTE | 2022-05-27 18:29 | MM ---
Reason for Exam: Screening (asymptomatic). Last mammogram was performed 3 year(s) and 3 month(s) ago. Patient History: Menarche at age 14. First Full-Term at age 30. Postmenopausal. Patient has history of breast feeding. Mother had breast cancer, age 94. Risk Values: Miriam 5 year model risk: 2.7%. NCI Lifetime model risk: 14.2%. Prior Study Comparison: 01/05/2014 Bilateral Screening Mammogram, [facility]. 06/30/2016 Bilateral Screening Mammogram, [facility]. 07/20/2017 Bilateral Screening Mammogram, [facility]. 03/06/2019 Bilateral Screening Mammogram, [facility]. Tissue Density: The breast tissue is heterogeneously dense. This may lower the sensitivity of mammography. Findings: Analyzed By CAD. Benign vascular calcifications posterior upper-outer quadrant right breast. There is no suspicious group of microcalcifications or new suspicious mass in either breast. Overall Assessment: Benign, BI-RAD 2 Management: Screening Mammogram of both breasts in 1 year. 1. Patient should continue monthly self breast exams. 2. A clinical breast exam by your physician is recommended on an annual basis. 3. This exam should not preclude additional follow-up of suspicious palpable abnormalities. Electronically signed and approved by: Gary Bartlett M.D. Radiologist
== END | disposition home or self-care (01) ==
LOC: RADMAMWWP 11:15
PROVIDERS: ATTEND Internal Medicine
DX: Z12.31 Encounter for screening mammogram for malignant neoplasm of breast (principal); Z78.0 Asymptomatic menopausal state; Z80.3 Family history of malignant neoplasm of breast
CPT/HCPCS: 77063; 77067

== ENCOUNTER 2022-07-15 10:48 | Day surgery (SDC) | payer BC ==
[2022-07-13 11:42] VITALS: BMI 22.4
[~2022-07-15 10:48] MED LIST changes: -LIDOCAINE 1% 20 ML VIAL (10MG/ML) FOR IV START INTRADERMA PRN
[2022-07-15 11:13] VITALS: TEMP 97.2
[2022-07-15] MEDS ORDERED: PROPOFOL 10 MG/ML 20 ML VIAL IV ONE (11:38)
--- NOTE | 2022-07-15 11:55 | P.PCN ---
Date of Procedure: 07/15/22 Procedure(s) Performed: BRIEF HISTORY: Patient is a 61-year-old pleasant white female scheduled for an elective colonoscopy as a part of surveillance of long-standing history of ulcerative colitis that was diagnosed 2010. She is presently maintained on Lialda 2 tablets daily and is in clinical remission. PROCEDURE PERFORMED: Colonoscopy with random biopsy. PREOPERATIVE DIAGNOSIS: And history of ulcerative colitis. IV sedation per Anesthesia. PROCEDURE: After informed consent was obtained, the patient, was brought into the endoscopy unit. IV sedation was administered by Anesthesia under continuous monitoring. Digital rectal examination was normal. Initially the Olympus CF-160 flexible video colonoscope was then inserted in the rectum, gradually advanced into the cecum without any difficulty. Careful examination was performed as the scope was gradually being withdrawn. Ileocecal valve and the appendiceal orifice were visualized and appeared normal. Prep was excellent. Mucosa of the cecum, ascending colon, transverse colon, descending colon, sigmoid colon, and rectum appeared normal. Random biopsies were done from the cecum to rectum at 10 cm interel. Scattered sigmoid diverticulosis seen. Retroflexion was performed in the rectum and no lesions were seen. The patient tolerated the procedure well. IMPRESSION: Normal-appearing colon from rectum to cecum no evidence of active colitis or colorectal neoplasia. Scattered sigmoid diverticulosis RECOMMENDATIONS: Findings of this examination were discussed with the patient as well as her family. Follow with the biopsy results. She will remain on Lialda 2 tablets daily. Recommend repeat colonoscopy in 2 years..
[2022-07-15 12:19] VITALS: BP 131/82; PULSE 52; RESP 16
== END 2022-07-15 12:42 ==
LOC: ORWHC2ENDO 10:48
PROVIDERS: ATTEND Internal Medicine Gastroenterology
DX: K52.9 Noninfective gastroenteritis and colitis, unspecified (principal); K57.30 Diverticulosis of large intestine without perforation or abscess without bleeding; I10 Essential (primary) hypertension; K91.0 Vomiting following gastrointestinal surgery; Z87.19 Personal history of other diseases of the digestive system; Z91.041 Radiographic dye allergy status; Z79.899 Other long term (current) drug therapy
CPT/HCPCS: 88305; 45380; J2704

== ENCOUNTER 2024-09-08 11:51 | Day surgery (SDC) | payer BC ==
[2024-09-06 15:33] VITALS: BMI 23.3
[2024-09-08] MEDS: IV FLUID CONTINUATION 1,000 ML IV ONE ×3 (13:45→16:25)
[2024-09-08 13:52] VITALS: TEMP 97
[2024-09-08] MEDS ORDERED: PROPOFOL 10 MG/ML 20 ML VIAL IV ONE (14:46)
--- NOTE | 2024-09-08 15:09 | P.PCN ---
Date of Procedure: 09/08/24 Procedure(s) Performed: BRIEF HISTORY: Patient is a 64-year-old pleasant white female scheduled for an elective colonoscopy as a part of screening for longstanding history of ulcerative colitis that was diagnosed in 2010. She is in clinical remission. PROCEDURE PERFORMED: Colonoscopy with random biopsies. PREOPERATIVE DIAGNOSIS: Screening for longstanding history of ulcerative colitis. IV sedation per Anesthesia. PROCEDURE: After informed consent was obtained, the patient, was brought into the endoscopy unit. IV sedation was administered by Anesthesia under continuous monitoring. Digital rectal examination was normal. Initially the Olympus CF-160 flexible video colonoscope was then inserted in the rectum, gradually advanced into the cecum without any difficulty. Careful examination was performed as the scope was gradually being withdrawn. Ileocecal valve and the appendiceal orifice were visualized and appeared normal. Prep was excellent. Mucosa of the cecum, ascending colon, transverse colon, descending colon, sigmoid colon, and rectum appeared normal. Sigmoid diverticulosis. Random biopsies were done from cecum to rectum at every 10 cm intervals to rule out dysplasia. Retroflexion was performed in the rectum and no lesions were seen. The patient tolerated the procedure well. IMPRESSION: Normal-appearing colon from rectum to cecum with no evidence of colitis or colorectal neoplasia Scattered sigmoid diverticulosis. RECOMMENDATIONS: Findings of this examination were discussed with the patient as well as her family. She was advised to follow-up with the biopsy results. If the biopsy negative for dysplasia she can have repeat colonoscopy in 3 years.
[2024-09-08 15:59] VITALS: RESP 16
[2024-09-08] MEDS: KETOROLAC 15 MG/ML 1 ML VIAL IVP STA (16:27)
--- NOTE | 2024-09-08 16:38 | XR ---
EXAMINATION TYPE: XR abdomen 2V DATE OF EXAM: 09/08/2024 4:30 PM COMPARISON: Multiple prior radiographs, most recently dated 09/08/2024. CLINICAL INDICATION: Female, 64 years old with history of abdominal pain; PHH, pain TECHNIQUE: Two views of the abdomen were obtained. FINDINGS: Numerous gas-filled loops of large and small bowel throughout the abdomen without discrete transition point. No definite evidence of free air. No acute osseous abnormality. IMPRESSION: Numerous gas-filled loops of bowel throughout the abdomen without discrete transition point suggestiv e of ileus. [facility], , 09/08/2024 4:36 PM
[2024-09-08 17:02] VITALS: BP 168/90; PULSE 58
== END 2024-09-08 17:07 | disposition home or self-care (01) ==
LOC: ORWHC2ENDO 11:51
PROVIDERS: ATTEND Internal Medicine Gastroenterology
DX: Z12.11 Encounter for screening for malignant neoplasm of colon (principal); K57.30 Diverticulosis of large intestine without perforation or abscess without bleeding; I10 Essential (primary) hypertension; R10.32 Left lower quadrant pain; Z91.89 Other specified personal risk factors, not elsewhere classified; Z79.899 Other long term (current) drug therapy; Z87.19 Personal history of other diseases of the digestive system; Z91.041 Radiographic dye allergy status
CPT/HCPCS: 88305; 74019; 45380; J1885; J2704

== ENCOUNTER → 2024-09-08 | Outpatient (CLI) | payer BC ==
--- NOTE | 2024-09-08 12:51 | XR ---
EXAMINATION TYPE: XR KUB DATE OF EXAM: 09/08/2024 11:47 AM COMPARISON: 01/27/2022 CLINICAL INDICATION: Female, 64 years old with history of N20.0 CALCULUS OF KIDNEY, TECHNIQUE: XR KUB view(s) obtained. FINDINGS: Nonspecific bowel gas is present with air within small bowel loops as well as the colon. No dilated l oops of bowel are evident. There is a somewhat prominent small bowel loop with air within the left mi d abdomen. No mass effect is evident. Psoas margins are normal. No organomegaly is present. No suspicious calcifications. IMPRESSION: 1. Nonspecific abdomen [facility], , 09/08/2024 12:48 PM
== END | disposition home or self-care (01) ==
LOC: RADXRMAIN 11:31
PROVIDERS: ATTEND Urology
DX: N20.0 Calculus of kidney (principal)
CPT/HCPCS: 74018